=== PATIENT | male | born 1970 | race African-American/Black ===

== ENCOUNTER 2022-08-13 17:36 | Inpatient (IN) | payer OTHER ==
[2022-08-13 18:35] VITALS: BMI 29.5
[2022-08-13] MEDS ORDERED: NALOXONE HCL 0.4 MG/ML VIAL IM PRN (20:59)
[2022-08-13] MEDS ORDERED: MAG HYDROX/AL HYDROX/SIMETH 30 ML UNIT-DOSE CUP PO PRN (20:59)
[2022-08-13] MEDS ORDERED: ONDANSETRON *ODT* 4 MG TABLET SL PRN (20:59)
[2022-08-13] MEDS ORDERED: IBUPROFEN 400 MG TABLET (FP) PO PRN (20:59)
[2022-08-13] MEDS ORDERED: ACETAMINOPHEN 325 MG TABLET (FP) PO PRN (20:59)
[2022-08-13] MEDS ORDERED: MAGNESIUM HYDROX 2400MG/30ML ORAL SUSPENSION 30 ML CUP PO PRN (20:59)
[2022-08-13] MEDS ORDERED: BISMUTH SUBSALICYLATE 524 MG/30 ML PO PRN (20:59)
[2022-08-13] MEDS ORDERED: POLYETHYLENE GLYCOL (HEALTHYLAX) 3350 17 GM PACKET PO PRN (20:59)
[2022-08-13] MEDS ORDERED: METHOCARBAMOL 500 MG TABLET PO PRN (20:59)
[2022-08-13] MEDS ORDERED: guaiFENesin 600 MG TABLET.ER (FP) PO PRN (20:59)
[2022-08-13] MEDS ORDERED: LOPERAMIDE HCL 2 MG CAPSULE PO PRN (20:59)
[2022-08-13] MEDS ORDERED: IBUPROFEN 600 MG TABLET (FP) PO PRN (20:59)
[2022-08-13] MEDS ORDERED: BENZOCAINE/MENTHOL (CHLORASEPTIC ) LOZENGE MM PRN (20:59)
[2022-08-13] MEDS ORDERED: hydrOXYzine PAMOATE 25 MG CAPSULE (FP) PO PRN (20:59)
[2022-08-13] MEDS ORDERED: DICYCLOMINE HCL 10 MG CAPSULE PO PRN (20:59)
[2022-08-13] MEDS ORDERED: BENZONATATE 200 MG CAPSULE PO PRN (20:59)
[2022-08-13] MEDS ORDERED: NALOXONE HCL (KLOXXADO) 8 MG SPRAY NS PRN (20:59)
[2022-08-14] MEDS: MELATONIN 5 MG TABLETS PO SCH ×2 (03:17→21:49)
[2022-08-14] MEDS: THIAMINE HCL 100 MG TABLET (FP) PO SCH ×2 (03:17→21:49)
[2022-08-14] MEDS: BACITRACIN 0.9 GM PACKET TP SCH (10:26)
[2022-08-14] MEDS: PRENATAL VITAMINS W/ FOLIC ACID TABLET (FP) PO SCH (10:26)
[2022-08-14 11:33] LABS: HEMATOCRIT 35.4 % (35.4-49); MCH 31.6 pg (25.7-33.7); MEAN PLT VOLUME 8.3 fl (7.5-11.1); PLATELET COUNT 178 10^3/uL (134-434); POTASSIUM 4.4 mmol/L (3.5-5.1); RDW 13.4 % (11.9-15.9); WHITE BLOOD COUNT 5.4 K/mm3 (4.0-10.0)
[2022-08-14 11:38] LABS: ALBUMIN 3.4 g/dl (3.4-5.0); BLOOD UREA NITROGEN 16.4 mg/dL (7-18); CALCIUM 9.4 mg/dL (8.5-10.1)
[2022-08-14 11:42] LABS: BILIRUBIN,TOTAL 0.7 mg/dL (0.2-1); CREATININE 1.1 mg/dL (0.55-1.3)
[2022-08-14 11:44] LABS: TOT PROT 7.1 g/dl (6.4-8.2)
[2022-08-15 06:32] VITALS: RESP 16
[2022-08-15] MEDS: BACITRACIN 0.9 GM PACKET TP SCH (10:46)
[2022-08-15] MEDS: PRENATAL VITAMINS W/ FOLIC ACID TABLET (FP) PO SCH (10:46)
[2022-08-15 10:54] VITALS: BP 129/80; PULSE 66; TEMP 97.7
== END 2022-08-15 10:34 | disposition other institution (70) | DRG 774 ==
LOC: YASAS 17:36 → Y3N 08-14 02:10
PROVIDERS: ADMIT Allergy & Immunology; ATTEND Surgery
PROC: HZ2ZZZZ Detoxification Services for Substance Abuse Treatment (ICD-10-PCS; principal; 2022-08-14)
DX: F10.230 Alcohol dependence with withdrawal, uncomplicated (principal); F14.20 Cocaine dependence, uncomplicated; S60.529A Blister (nonthermal) of unspecified hand, initial encounter; X58.XXXA Exposure to other specified factors, initial encounter; Z87.891 Personal history of nicotine dependence; Z59.00 Homelessness unspecified
CPT/HCPCS: 36415; 80053; 85027; 86480; 86780; C9803-CS; U0003; U0005

== ENCOUNTER 2023-03-19 16:46 | Inpatient (IN) | payer OTHER ==
[2023-03-19 17:22] VITALS: BMI 27.3
[2023-03-19] MEDS ORDERED: BENZOCAINE/MENTHOL (CHLORASEPTIC ) LOZENGE MM PRN (22:41)
[2023-03-19] MEDS ORDERED: POLYETHYLENE GLYCOL (HEALTHYLAX) 3350 17 GM PACKET PO PRN (22:41)
[2023-03-19] MEDS ORDERED: P-EPHED 60MG/TRIPROLIDI 2.5MG TABLET PO PRN (22:41)
[2023-03-19] MEDS ORDERED: guaiFENesin 600 MG TABLET.ER (FP) PO PRN (22:41)
[2023-03-19] MEDS ORDERED: LOPERAMIDE HCL 2 MG CAPSULE PO PRN (22:41)
[2023-03-19] MEDS ORDERED: MAGNESIUM HYDROX 2400MG/30ML ORAL SUSPENSION 30 ML CUP PO PRN (22:41)
[2023-03-19] MEDS ORDERED: BENZONATATE 200 MG CAPSULE PO PRN (22:41)
[2023-03-19] MEDS ORDERED: COLLOIDAL OATMEAL 1 BAR EACH TP PRN (22:41)
[2023-03-19] MEDS ORDERED: IBUPROFEN 600 MG TABLET (FP) PO PRN (22:41)
[2023-03-19] MEDS ORDERED: MAG HYDROX/AL HYDROX/SIMETH 30 ML UNIT-DOSE CUP PO PRN (22:41)
[2023-03-19] MEDS ORDERED: ACETAMINOPHEN 325 MG TABLET (FP) PO PRN (22:41)
[2023-03-19] MEDS ORDERED: IBUPROFEN 400 MG TABLET (FP) PO PRN (22:41)
[2023-03-19] MEDS: MELATONIN 5 MG TABLETS PO SCH (23:07)
[2023-03-20] MEDS: PRENATAL VITAMINS W/ FOLIC ACID TABLET (FP) PO SCH (10:23)
[2023-03-20 10:32] LABS: CHLORIDE 105 mmol/L (98-107); POTASSIUM 3.6 mmol/L (3.5-5.1); SODIUM 141 mmol/L (136-145)
[2023-03-20 10:33] LABS: HEMATOCRIT 39.4 % (35.4-49); HEMOGLOBIN 12.9 GM/dL (11.7-16.9); MCH 31.4 pg (25.7-33.7); MCHC 32.7 g/dl (32.0-35.9); MEAN PLT VOLUME 7.7 fl (7.5-11.1); PLATELET COUNT 180 10^3/uL (134-434); RDW 13.8 % (11.9-15.9); WHITE BLOOD COUNT 4.1 K/mm3 (4.0-10.0)
[2023-03-20 10:43] LABS: GLUCOSE,RANDOM 89 mg/dL (74-106)
[2023-03-20 10:44] LABS: ANION GAP 8 mmol/L (4-13); BLOOD UREA NITROGEN 14.4 mg/dL (7-18); CALCIUM 9.3 mg/dL (8.5-10.1); CO2 28 mmol/L (21-32)
[2023-03-20 10:46] LABS: CREATININE 1.1 mg/dL (0.55-1.3); SGOT/AST 34 U/L (15-37)
[2023-03-20 10:47] LABS: BILIRUBIN,TOTAL 1.4 mg/dL (0.2-1); TOT PROT 7.8 g/dl (6.4-8.2)
[2023-03-20 10:48] LABS: ALK PHOS 77 U/L (45-117); SGPT/ALT 27 U/L (13-61)
[2023-03-20 14:18] LABS: EPI CELLS 3 /uL (0-25.1); HYALINE CASTS 2 /uL (0-3.1); URINE APPEARANCE CLOUDY; URINE BACTERIA 3 /uL (0-1359); URINE BILIRUBIN 1+ (NEGATIVE); URINE COLOR DK YELLOW; URINE GLUCOSE (UA) NEGATIVE (NEGATIVE); URINE KETONE TRACE (NEGATIVE); URINE LEUK ESTERASE NEGATIVE (NEGATIVE); URINE NITRITE NEGATIVE (NEGATIVE); URINE PROTEIN 1+ (NEGATIVE); URINE RBC 6 /uL (0-23.9); URINE WBC 8 /uL (0-25.8)
[2023-03-20 16:26] LABS: SYPHILIS W/ RPR CONF NON-REACTIVE (NONREACTIVE)
[2023-03-20] MEDS: THIAMINE HCL 100 MG TABLET (FP) PO SCH (21:33)
[2023-03-20] MEDS: MELATONIN 5 MG TABLETS PO SCH (21:33)
[2023-03-21] MEDS: PRENATAL VITAMINS W/ FOLIC ACID TABLET (FP) PO SCH (10:12)
[2023-03-21] MEDS: THIAMINE HCL 100 MG TABLET (FP) PO SCH (21:18)
[2023-03-21] MEDS: MELATONIN 5 MG TABLETS PO SCH (21:18)
[2023-03-22] MEDS: PRENATAL VITAMINS W/ FOLIC ACID TABLET (FP) PO SCH (10:54)
[2023-03-22] MEDS: THIAMINE HCL 100 MG TABLET (FP) PO SCH (21:49)
[2023-03-22] MEDS: MELATONIN 5 MG TABLETS PO SCH (21:49)
[2023-03-23 07:11] VITALS: RESP 18; TEMP 97.1
[2023-03-23] MEDS: PRENATAL VITAMINS W/ FOLIC ACID TABLET (FP) PO SCH (10:36)
[2023-03-23] MEDS: THIAMINE HCL 100 MG TABLET (FP) PO SCH (21:48)
[2023-03-23] MEDS: MELATONIN 5 MG TABLETS PO SCH (21:48)
[2023-03-24 07:10] VITALS: BP 120/92; PULSE 81
== END 2023-03-24 09:10 | disposition home or self-care (01) | DRG 772 ==
LOC: YASAS 16:46 → Y3W 22:41
PROVIDERS: ADMIT Allergy & Immunology; ATTEND Psychiatry & Neurology Pain Medicine
PROC: HZ42ZZZ Group Counseling for Substance Abuse Treatment, Cognitive-Behavioral (ICD-10-PCS; principal; 2023-03-19)
DX: F14.20 Cocaine dependence, uncomplicated (principal); F17.210 Nicotine dependence, cigarettes, uncomplicated; Z59.00 Homelessness unspecified
CPT/HCPCS: 36415; 80053; 80307; 81003; 85027; 86780; 86803; 87635